=== PATIENT | female | born 1940 | race Hispanic/Latino ===

== ENCOUNTER 2018-06-06 12:55 | Emergency (ER) | payer MEDICARE, BC ==
[2018-06-06 13:03] VITALS: BMI 19.7
[2018-06-06 13:29] VITALS: BP 171/64; PULSE 68; RESP 18; TEMP 97.9; O2SAT 100
--- NOTE | 2018-06-06 14:55 | CT ---
Date of service: 06/06/2018 PROCEDURE: CT HEAD WITHOUT CONTRAST. HISTORY: HEAD INJURY, R/O BLEED COMPARISON: None available. TECHNIQUE: Axial computed tomography images were obtained through the head/brain without intravenous contrast. Radiation dose: Total exam DLP = 896.08 mGy-cm. This CT exam was performed using one or more of the following dose reduction techniques: Automated exposure control, adjustment of the mA and/or kV according to patient size, and/or use of iterative reconstruction technique. FINDINGS: HEMORRHAGE: No intracranial hemorrhage. BRAIN: Anderson-white matter differentiation is preserved. There is no mass, mass effect or abnormal extra-axial fluid collection. There is no territorial infarction. The midline sagittal structures are normal. VENTRICLES: There is mild age-related global parenchymal volume loss and proportionate enlargement of the ventricles and cortical sulci. CALVARIUM: There is no calvarial fracture or extracranial soft tissue swelling. PARANASAL SINUSES: Predominantly clear. MASTOID AIR CELLS: Predominantly clear. OTHER FINDINGS: None. IMPRESSION: No acute intracranial abnormality.
--- NOTE | 2018-06-06 15:09 | C.PDOC ---
History Of Present Illness 77 years old female sent to ED by PMD for evaluation of syncopal episode yesterday. Patient states she took her usual insulin dose but did not eat on time then she began to feel weak and fell off stool and hit her head. As per patient's , patient's syncopal episode lasted a few seconds, then he gave her a juice and she felt better. Admits to prior hypoglycemia and states symptoms feel similar. Patient states she takes baby aspirin everyday but no other medications. Denies chest pain, palpitations, shortness of breath, a bdominal pain, nausea, vomiting, or diarrhea. Time Seen by Provider: 06/06/18 13:34 Chief Complaint (Nursing): Syncope History Per: Patient History/Exam Limitations: no limitations Onset/Duration Of Symptoms: Hrs Current Symptoms Are (Timing): Still Present Associated Symptoms Preceding Syncopal Episode: No Predromal Symptoms (Sudden Onset) Seizure Or Post-ictal Symptoms: None Fall Associated With With Symptoms: No - Symptoms Of CVA Recent Aspirin Use: Yes (Last Taken) Current Coumadin Use?: No Recent Head Trauma: No Past Medical History Reviewed: Historical Data, Nursing Documentation, Vital Signs Vital Signs: Last Vital Signs Temp 97.9 F 06/06/18 13:03 Pulse 68 06/06/18 13:03 Resp 18 06/06/18 13:03 BP 171/64 H 06/06/18 13:03 Pulse Ox 100 06/06/18 13:03 - Medical History PMH: HTN, Hypercholesterolemia - [facility] Procedures INJECT/INFUSE NEC (09/04/03) Family History: States: No Known Family Hx - Social History Hx Alcohol Use: No Hx Substance Use: No - Immunization History Hx Tetanus Toxoid Vaccination: No Hx Influenza Vaccination: No Hx Pneumococcal Vaccination: No Review Of Systems Constitutional: Negative for: Fever, Chills Cardiovascular: Negative for: Chest Pain, Palpitations Gastrointestinal: Negative for: Nausea, Vomiting, Abdominal Pain, Diarrhea Skin: Negative for: Rash Neurological: Negative for: Weakness, Numbness Physical Exam - Physical Exam Appears: Non-toxic, No Acute Distress Skin: Normal Color, Warm, Dry, No Rash Head: Atraumatic, Normacephalic, Other (Contusion of right occiput) Eye(s): bilateral: Normal Inspection, PERRL, EOMI Oral Mucosa: Moist Neck: Normal ROM, No Midline Cervical Tenderness, Supple Chest: Symmetrical, No Tenderness Cardiovascular: Rhythm Regular Respiratory: Normal Breath Sounds, No Rales, No Rhonchi, No Wheezing Gastrointestinal/Abdominal: Bowel Sounds (Active ), Soft, No Tenderness Extremity: Normal ROM Extremity: Bilateral: Atraumatic, Normal Color And Temperature, Normal ROM Pulses: Left Radial: Normal, Right Radial: Normal Neurological/Psych: Oriented x3, Normal Speech, Normal Cognition Gait: Steady ED Course And Treatment Interpretation Of ECG: Sinus bradycardia at 49 bpm. Left Jasper Deviation. No acute ST/T wave changes O2 Sat by Pulse Oximetry: 100 (RA) Pulse Ox Interpretation: Normal - CT Scan/US CT HEAD Other Rad Studies (CT/US): Read By Radiologist, Radiology Report Reviewed CT/US Interpretation: Accession No. : [id number]. Patient Name / ID : KARLENE STOUT / [id number]. Exam Date : 06/06/2018 14:36:13 ( Approved ). Study Comment : Sex / Age : F / 77Y. Creator : Zuleima Armstrong. Dictator : Korin Sanabria MD. Metal Sprayer Protective Coating : Aircraft Maintenance Manager : Korin Sanabria MD. Approver2 : Report Date : 06/06/2018 14:42:50. My Comment : . Date of service: 06/06/2018. PROCEDURE: CT HEAD WITHOUT CONTRAST. HISTORY: HEAD INJURY, R/O BLEED. COMPARISON: None available. TECHNIQUE: Axial computed tomography images were obtained through the head/brain without intravenous contrast. Radiation dose: Total exam DLP = 896.08 mGy-cm. This CT exam was performed using one or more of the following dose reduction techniques: Automated exposure control, adjustment of the mA and/or kV according to patient size, and/or use of iterative reconstruction technique. FINDINGS: HEMORRHAGE: No intracranial hemorrhage. BRAIN: Anderson- white matter differentiation is preserved. There is no mass, mass effect or abnormal extra-axial fluid collection. There is no territorial infarction. The midline sagittal structures are normal. VENTRICLES: There is mild age-related global parenchymal volume loss and proportionate enlargement of the ventricles and cortical sulci. CALVARIUM: There is no calvarial fracture or extracranial soft tissue swelling. PARANASAL SINUSES: Predominantly clear. MASTOID AIR CELLS: Predominantly clear. OTHER FINDINGS: None. IMPRESSION: No acute intracranial abnormality. Progress Note: Ordered Head CT and EKG Disposition Counseled Patient/Family Regarding: Studies Performed, Diagnosis, Need For Followup - Disposition Referrals: Linda Andrew MD [Medical Doctor] - Disposition: HOME/ ROUTINE Disposition Time: 15:15 Condition: STABLE Additional Instructions: FOLLOW UP WITH YOUR DOCTOR IN 1-2 DAYS RETURN TO ER IF YOU HAVE ANY CONCERNING SYMPTOMS Instructions: Closed Head Injury (DC) Forms: [employer] (Palauan) Print Language: MOHAWK - Clinical Impression Clinical Impression: Diabetic hypoglycemia, Closed head injury - Scribe Statement The provider has reviewed the documentation as recorded by the Scribmayuri Calixto All medical record entries made by the Scribe were at my direction and personally dictated by me. I have reviewed the chart and agree that the record accurately reflects my personal performance of the history, physical exam, medical decision making, and the department course for this patient. I have also personally directed, reviewed, and agree with the discharge instructions and disposition.
--- NOTE | 2018-06-09 09:32 | CARD ---
APPROVED REPORT Date of service: 06/06/2018 EKG Measurement Heart [id number] <Conclusion> Sinus bradycardia Left axis deviation Cannot rule out Anterior infarct, age undetermined Abnormal ECG
== END 2018-06-06 15:24 | disposition home or self-care (01) ==
LOC: C.ER 12:55
DX: E11.649 Type 2 diabetes mellitus with hypoglycemia without coma (principal); Z79.4 Long term (current) use of insulin; S00.03XA Contusion of scalp, initial encounter; W17.89XA Other fall from one level to another, initial encounter